=== PATIENT | male | born 1945 | race Caucasian/White ===

== ENCOUNTER 2020-12-06 08:58 | Outpatient (CLI) | payer MEDICARE, SELFPAY ==
--- NOTE | ~2020-12-06 | US_ITS ---
US right upper quadrant INDICATION: Elevated bilirubin PROCEDURE: Realtime right upper abdominal ultrasound. COMPARISON: No prior studies for comparison. FINDINGS: The pancreas is normal without focal mass or pancreatic ductal dilation. Liver echotexture is somewhat heterogeneous and contains a 9 mm cyst. There is normal directional flow in the portal vein. Gallbladder is surgically absent. Common bile duct measures 8 mm. IMPRESSION: 1: Status post cholecystectomy with expected prominence of the common bile duct. 2: Liver cyst measuring 9 mm. Reviewed, dictated and finalized at location B. IMPRESSION: 1: Status post cholecystectomy with expected prominence of the common bile duct . 2: Liver cyst measuring 9 mm.
== END 2020-12-06 08:59 | disposition home or self-care (01) ==
PROVIDERS: PCP Family Medicine; Visit Provider Internal Medicine Gastroenterology
DX: E80.6 Other disorders of bilirubin metabolism (principal); Z90.49 Acquired absence of other specified parts of digestive tract; K76.89 Other specified diseases of liver
CPT/HCPCS: 76705

== ENCOUNTER 2025-04-23 08:28 | Outpatient (CLI) | payer MEDICARE, SELFPAY ==
--- NOTE | 2025-04-23 08:45 | CY_PTH ---
PATIENT: Dominic Maldonado LOC: [facility] #:[id number] AGE/SX: 79/M ROOM: RE04/23/[address]: John Kinney MD : 1945 BED: DIS: 04/23/2025 SPEC #: [id number] RECD: 04/23/25 10:40 STATUS: SOUT REQ #: [id number] EUGENIA: 04/23/25 08:[address]: John Kinney DEPT: [facility] Cytology RECD BY: Monico Fowler ENTERED: 04/23/25 10:40 SP TYPE: Cytology OTHR DR: Brent Sosa MD Tissues: A - Peripheral Blood Procedures: Flow Cytometry
--- OUTSIDE RECORDS SUMMARY | 2025-04-23 08:47 | XMS_ITS | Clinical Summary ---
Author Organization [facility] Address [address] [place] [address] Phone Care Team Providers Care Storage Consultant Name Role Phone Brent Sosa MD Primary Care Provider Social History Tobacco Use Types Packs/Day Years Used Date Smoking Tobacco: Never Assessed Sex and Gender Information Value Date Recorded Sex Assigned at Not on file Legal Sex Male 9:10 PM CDT Gender Identity Not on file Sexual Orientation Not on file Plan of Treatment Health Maintenance Due Date Last Done Comments Hepatitis C Virus (HCV) Screening 1945 TdaP Immunization 1945 Pneumococcal Immunization (5 0+ years) (1 of 1 - PCV) 1993 Zoster Immunization (1 of 2) 1993 Respiratory Syncytial Virus (RSV) Immunization (Adult) (1 - 1-dose 75+ series) 2018 Medicare Initial AWV [id number] 06/28/2019 Influenza Immunization (#1) 2025 SARS-COV-2 Immunization ( season) 2025 Hepatitis B Immunization Aged Out No longer eligible based on patient's age to complete this topic Human Papillomavirus (HPV) Immunization Aged Out No longer eligible b ased on patient's age to complete this topic Meningococcal Immunization (ACWY) Aged Out No longer eligible based on patient's age to complete this topic Rotavirus Immunization Aged Out No lo nger eligible based on patient's age to complete this topic Insurance MEDICARE C [employer] on file Care Teams Storage Consultant Relationship Specialty Start Date End Date Brent Sosa MD PCP - General Family Medicine 02/14/19
--- OUTSIDE RECORDS SUMMARY | 2025-04-23 08:47 | XMS_ITS | Clinical Summary ---
Author Organization [facility] Address [address] [place] [address] Care Team Providers Care Powerbuilder Name Role Phone Brent Sosa MD Primary Care Provider Allergies No known active allergies Medications amLODIPine (NORVASC) 10 mg tablet TAKE 1 TABLET BY MOUTH ONCE DAILY 09/10/2020 Active cholecalciferol 1,250 mcg (50,000 unit) Capsule Take 1 Capsule by mouth every 7 days. 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 Encounters Date Type Department Care Team Description 04/18/2025 External Device Data [facility] ABSTRACTION Provider, Abstract 04/18/2025 External Device Data [facility]STRACTION Provider, Abstract 04/17/2025 External Device Data [facility]STRACTION Provider, Abstract 04/16/2025 3:00 PM CDT Office Visit [facility] [address] [place] [address] John Kinney MD Benign hypertension (Primary Dx); Lymphocytosis 04/11/2025 Orders Only [facility] [address] [place] [address] John Kinney MD Other secondary thrombocytopenia (Primary Dx) from Last 3 Months Family History Medical History Relation Name Comments Heart Disease Brother Heart Disease Father Breast Cancer Mother Relation Name Status Comments Brother Daughter Alive Father Mother Sister Son Alive Social History Tobacco Use Types Packs/Day Years Used Date Smoking Tobacco: Never Alcohol Use Standard Drinks/Week Comments Yes 0 (1 standard drink = 0.6 oz pur e alcohol) occasional Sex and Gender Information Value Date Recorded Sex Assigned at Not on file Legal Sex Male 10:48 AM CDT Gender Identity Not on file Sexual Orientation Not on file Last Filed Vital Signs Vital Sign Reading Time Taken Comments Blood Pressure 140/92 04/16/2025 2:55 PM CDT Pulse 68 04/16/2025 2:55 PM CDT Temperature 36.2 C (97.2 F) 04/16/2025 2:55 PM CDT Respiratory Rate 15 04/16/2025 2:55 PM CDT Oxygen Saturation 95% 04/16/2025 2:55 PM CDT Inhaled Oxygen Concentration - - Weight 87.2 kg (192 lb 3.2 oz) 04/16/2025 2:55 P M CDT Height 172.7 cm (5' 8) 04/16/2025 2:55 PM CDT Body Mass Index 29.22 04/16/2025 2:55 PM CDT Plan of Treatment Upcoming Encounters Date Type Department Care Team (Late st Contact Info) Description 04/30/2025 4:30 PM CIVIL RIGHTS ATTORNEY Telephone Check Up [facility] - [place] [address] [facility] [address] [place] [address] John Kinney MD [address] [facility] [address] [place] [address] Health Maintenance Due Date Last Done Comments DTAP/TDAP/TD VACCINES (1 - Tdap) 1962 PNEUMOCOCCAL VACCINE 50+ YEARS (1 of 1 - PCV) 07/09/18 94 ZOSTER VACCINE (1 of 2) 1993 RSV VACCINE (60+ or ) (1 - 1-dose 75+ series) 2018 Medicare [place] Prev entative Visit/Annual Wellness Visit 06/28/2024 INFLUENZA VACCINE (#1) 2025 Insurance [facility] [id number] [id number] Care Teams Powerbuilder Relationship Specialty Start Date End Date Brent Sosa MD [address] [place] [id number] PCP - General Family Practice 04/07/17
[2025-04-23 08:49] LABS: Hematocrit 48.2 % (42.0-52.0); Hemoglobin 16.2 g/dL (14.0-18.0); Immature Granulocyte Percent A 0.3 % (0-0.5); Lymphocytes Absolute Auto 20.50 K/mm3 (0.9-3.2); Mean Corpuscular HGB Conc 33.6 g/dl (32-36); Mean Corpuscular Hemoglobin 30.8 pg (26-34); Mean Corpuscular Volume 91.6 fl (80-100); Nucleated Red Blood Cells Absolute Auto 0.000 K/mm3 (0.0-0.012); Nucleated Red Blood Cells Perc 0.0 % (0.0-0.2); Platelet Count Result 151 k/mm3 (150-375); Red Blood Count 5.26 M/mm3 (4.6-6.20); White Blood Count 25.0 K/mm3 (4.5-10.0)
[2025-04-23 11:03] LABS: Alanine Aminotransferase 19 U/L (6-50); Albumin Level 4.3 g/dL (3.5-5.1); Alkaline Phosphatase 93 U/L (38-126); Anion Gap 8 mmol/L (4-12); Aspartate Amino Transferase 46 U/L (17-59); Bilirubin,Total 2.4 mg/dL (0.2-1.3); Blood Urea Nitrogen 18 mg/dL (9-20); CRP < 0.5 mg/dL (<1.0); Calcium 8.6 mg/dL (8.4-10.2); Carbon Dioxide 26 mmol/L (22-30); Chloride 105 mmol/L (98-107); Estimated Glomerular Filt Rate > 60; Glucose 106 mg/dL (65-110); Sodium 139 mmol/L (137-145); Total Protein 7.3 g/dL (6.3-8.2)
[2025-04-23 11:11] LABS: Potassium 4.1 mmol/L (3.4-5.0)
== END 2025-04-23 08:29 | disposition home or self-care (01) ==
LOC: ANHLAB 08:29
PROVIDERS: PCP Family Medicine; Visit Provider Internal Medicine Hematology & Oncology
DX: D72.820 Lymphocytosis (symptomatic) (principal)
CPT/HCPCS: 36415; 80053; 85025; 86140; 88184